=== PATIENT | male | born 1960 | race Caucasian/White ===

== ENCOUNTER 2017-03-08 15:52 | Inpatient (IN) | payer OTHER ==
[~2017-03-08] VITALS: Ht 165.1 cm; Wt 89.3 kg
[2017-03-08 16:40] LABS: BASOPHIL % 0.3 % (0-2); PLATELET COUNT 236 x10^3mcL (130-400); RED CELL DISTRIBUTION WIDTH 13.6 % (11.5-14.5)
[2017-03-08 17:38] LABS: UA SPECIFIC GRAVITY <=1.005 (1.005-1.035); microscopic required? YES; urine erythrocyte 1+ (NEGATIVE)
[2017-03-08 17:41] LABS: CALCIUM 8.7 mg/dL (8.5-10.1); CARBON DIOXIDE 27.8 mmol/L (21-32); CHLORIDE SERUM 101 mmol/L (98-107); CREATININE SERUM 1.1 mg/dL (0.7-1.3); GFR1 > 60 mL/min; GLUCOSE SERUM 97 mg/dL (74-106); POTASSIUM SERUM 3.9 mmol/L (3.5-5.1); SODIUM SERUM 137 mmol/L (136-145)
[2017-03-08 17:45] LABS: ALBUMIN 3.8 g/dL (3.4-5.0); ALKALINE PHOSPHATASE 105 U/L (46-116); ALT/SGPT 69 U/L (16-63); AMYLASE 68 U/L (25-115); AST/SGOT 32 U/L (15-37); BILIRUBIN TOTAL 0.4 mg/dL (0.20-1.00); CHOLESTEROL 194 mg/dL (<200); HDL CHOLESTEROL 35 mg/dL (40-60); LIPASE 132 IU/L (73-393); TOTAL PROTEIN, SERUM 7.3 g/dL (6.4-8.2)
[2017-03-08 18:40] LABS: MAGNESIUM 2.2 mg/dL (1.8-2.4); PHOSPHOROUS 3.5 mg/dL (2.5-4.9)
[2017-03-08 18:44] LABS: T3 TOTAL 0.99 ng/mL
[2017-03-08 18:50] LABS: FREE T4 1.05 ng/dL (0.76-1.46); FREE THYROXINE INDEX 3.1 ug/dL (1.4-4.5); T4(THYROXINE) 8.3 ug/dL (4.7-13.3)
[2017-03-08 18:57] VITALS: BP 114/70
[2017-03-08 19:10] LABS: AMPHETAMINE QUAL UR NONE DETECTED (NEG <=1000)
[2017-03-08 21:55] VITALS: BP 124/73
[2017-03-09 06:48] VITALS: BP 118/74
[2017-03-09 09:13] VITALS: BP 123/75
[2017-03-09 13:06] VITALS: BP 123/81
== END 2017-03-09 17:20 | disposition left against medical advice (07) | DRG 74 ==
LOC: ED 15:52 → DU 17:59
PROVIDERS: Emergency Medicine; ADMIT Family Medicine
DX: G90.8 Other disorders of autonomic nervous system (principal); D68.69 Other thrombophilia; N13.30 Unspecified hydronephrosis; K21.9 Gastro-esophageal reflux disease without esophagitis; R73.03 Prediabetes; E78.2 Mixed hyperlipidemia; E66.9 Obesity, unspecified; R31.9 Hematuria, unspecified; E78.5 Hyperlipidemia, unspecified; Z68.32 Body mass index [BMI] 32.0-32.9, adult; Z82.3 Family history of stroke; Z72.89 Other problems related to lifestyle
CPT/HCPCS: 82962; 83880; 84439; J7030; Q0092